=== PATIENT | male | born 1980 | race Caucasian/White ===

== ENCOUNTER 2021-05-26 01:30 | Emergency (ER) | payer MEDICAID ==
[~2021-05-26] VITALS: Ht 185.4 cm; Wt 100.0 kg
[2021-05-26 01:36] VITALS: BP 145/87
[2021-05-26] MEDS ORDERED: HYDROcodone/acetaminophen 5mg/325mg tablet PO ONE (02:30)
== END 2021-05-26 02:52 | disposition home or self-care (01) ==
LOC: ER 01:32
DX: K02.9 Dental caries, unspecified (principal); F17.210 Nicotine dependence, cigarettes, uncomplicated
CPT/HCPCS: 99283

== ENCOUNTER 2022-04-10 08:41 | Emergency (ER) | payer MEDICAID ==
[~2022-04-10] VITALS: Ht 182.9 cm; Wt 90.0 kg
[2022-04-10 08:47] VITALS: BP 144/95
[2022-04-10] MEDS ORDERED: HYDROcodone/acetaminophen 5mg/325mg tablet PO ONE (09:05)
[2022-04-10] MEDS ORDERED: CHLO473M2 MM (09:14)
[2022-04-10] MEDS ORDERED: TRAM1TAB7 PO (09:14)
[2022-04-10] MEDS ORDERED: AMOX-117 PO (09:14)
== END 2022-04-10 09:36 | disposition home or self-care (01) ==
LOC: ER 08:42
DX: K08.89 Other specified disorders of teeth and supporting structures (principal)
CPT/HCPCS: 99283

== ENCOUNTER 2022-07-15 19:40 | Emergency (ER) | payer MEDICAID ==
[~2022-07-15] VITALS: Ht 182.9 cm; Wt 100.2 kg
[~2022-07-15 19:40] MED LIST: CHLO473M2 MM
[2022-07-15 19:53] VITALS: BP 150/107
[2022-07-16] MEDS ORDERED: AMOX-117 PO (13:18)
== END 2022-07-15 22:16 | disposition left against medical advice (07) ==
LOC: ER 19:40
DX: K08.89 Other specified disorders of teeth and supporting structures (principal); Z53.21 Procedure and treatment not carried out due to patient leaving prior to being seen by health care provider
CPT/HCPCS: 99281

== ENCOUNTER 2022-07-16 06:58 | Emergency (ER) | payer MEDICAID ==
[~2022-07-16] VITALS: Ht 182.9 cm; Wt 97.6 kg
[2022-07-16 07:00] VITALS: BP 144/105
[2022-07-16] MEDS ORDERED: ketorolac trometh. 30mg/ml inj. IV ONE (07:15)
--- NOTE | 2022-07-16 07:25 | NUR ---
rn called pharm to bring clindamycin.
[2022-07-16] MEDS ORDERED: clindamycin 300mg/D5W 50mL 50 ML IV SCH (08:00)
[2022-07-16] MEDS ORDERED: iohexol 300mg/ml 100ml inj. ONE (08:43)
[2022-07-16] MEDS ORDERED: dexamethasone sod phosphate 10mg/ml inj IV STA (09:07)
[2022-07-16] MEDS ORDERED: diphenhydrAMINE 50 mg/ml inj IV ONE (09:10)
[2022-07-16] MEDS ORDERED: AMOX-117 PO (13:18)
== END 2022-07-16 09:48 | disposition home or self-care (01) ==
LOC: ER 06:59
DX: K08.89 Other specified disorders of teeth and supporting structures (principal); R13.10 Dysphagia, unspecified
CPT/HCPCS: 70450; 70491; 96365; 96375; 99285; J1100; J1885; J3490; Q9967

== ENCOUNTER 2022-07-16 10:58 | Emergency (ER) | payer MEDICAID ==
[~2022-07-16] VITALS: Ht 182.9 cm; Wt 93.6 kg
[2022-07-16] MEDS ORDERED: CefTRIAXone 2gm/D5W 50ml BAG 50 ML IV ONE (11:10)
[2022-07-16] MEDS ORDERED: vancomycin/NS 1 GM ADD-VANTAGE 250 ML X 1 DOSE IV ONE (11:30)
[2022-07-16 11:44] LABS: BASOPHILS % (AUTO) 0.5 % (0-1); EOSINOPHILS # (AUTO) 0.1 X10'3 (0-0.9); EOSINOPHILS % (AUTO) 1.2 % (0-6); HEMATOCRIT 47.9 % (42.0-52.0); LYMPHOCYTES # (AUTO) 0.9 X10'3 (1.1-4.8); LYMPHOCYTES % (AUTO) 9.3 % (21-51); MEAN CORPUSCULAR HEMOGLOBIN 29.4 PG (27.0-31.0); MEAN CORPUSCULAR HGB CONC 33.5 g/dL (33.0-36.5); MEAN CORPUSCULAR VOLUME 87.9 FL (78-98); MEAN PLATELET VOLUME 9.2 FL (7.4-10.4); MONOCYTES # (AUTO) 0.3 X10'3 (0-0.9); MONOCYTES % (AUTO) 3.2 % (2-12); NEUTROPHILS # (AUTO) 8.3 X10'3 (1.8-7.7); NEUTROPHILS % (AUTO) 85.8 % (42-75); PLATELET COUNT 218 X10'3 (140-440); RED BLOOD COUNT 5.45 X10'6 (4.70-6.10); RED CELL DISTRIBUTION WIDTH 13.1 % (11.5-14.5); WHITE BLOOD COUNT 9.6 X10'3 (4.5-11.0)
[2022-07-16 11:59] VITALS: BP 140/93
[2022-07-16 12:11] LABS: ALANINE AMINOTRANSFERASE 42 U/L (12-78); ALBUMIN 4.7 G/DL (3.4-5.0); ALBUMIN/GLOBULIN RATIO 1.2 (1.1-1.5); ALKALINE PHOSPHATASE 87 IU/L (46-116); ASPARTATE AMINO TRANSFERASE 21 U/L (10-37); BILIRUBIN,TOTAL 0.3 MG/DL (0.1-1.0); TOTAL PROTEIN 8.6 G/DL (6.4-8.2)
[2022-07-16 12:15] LABS: BILIRUBIN,DIRECT 0.1 MG/DL (0-0.3)
--- NOTE | 2022-07-16 13:01 | NUR ---
DECLINED: [facility] [id number] DECLINED:[id number] DECLINED:[id number] DECLINED:BETY [id number] 1300
[2022-07-16] MEDS ORDERED: AMOX-117 PO (13:18)
== END 2022-07-16 17:53 | disposition home or self-care (01) ==
LOC: ER 10:58
DX: K04.7 Periapical abscess without sinus (principal)
CPT/HCPCS: 36415; 80076; 83605; 85025; 87040; 96365; 96375; 99284; J0696; J3370

== ENCOUNTER 2025-01-02 06:04 | Emergency (ER) | payer MEDICAID | END 2025-01-02 06:45 | disposition left against medical advice (07) | LOC: ER 06:05 | DX: K08.89 Other specified disorders of teeth and supporting structures (principal); Z53.21 Procedure and treatment not carried out due to patient leaving prior to being seen by health care provider ==